=== PATIENT | female | born 1970 | race Two or more races ===

== ENCOUNTER 2025-02-20 14:30 | Emergency (ER) | payer SELFPAY ==
[2025-02-20 14:59] VITALS: BP 110/72; PULSE 65; RESP 18; TEMP 37.3; O2SAT 97
--- NOTE | 2025-02-20 15:07 | XR_ITS ---
Examination: CT brain head without contrast. 2-D sagittal coronal reconstructions Date and time of exam:February 20, 2025, 1526 hrs. Indications: Patient fell today, injury to the head, head pain. CTDI: vol (mGy):44.5. DLP: (mGycm):853. Technique: Multiple CT axial sections of the brain have been obtained, 5 mm slice thickness. Contrast has not been administered. 2-D sagittal, coronal reconstructions have been obtained Low dose protocols were performed. One or more of the following dose reduction techniques were used; automated exposure control, adjustment of the mA and/or KV according to patient size, use of iterative reconstruction technique. Findings: No significant ventricular enlargement. Intra-axial or extra-axial hemorrhage density is not seen. No mass effect or midline shift Basal cisterns are not remarkable. Fourth ventricle is midline. Cranial vault intact. Impression: Negative for acute hemorrhage, mass effect or midline shift
--- NOTE | 2025-02-20 15:07 | XR_ITS ---
Examination: CT cervical spine without contrast 2-D sagittal reconstructions 2-D coronal reconstructions 3-D reconstructions. Exam date and time:February 20, 2025 at 1527 hrs. Indications: Patient fell today with injury to the neck, neck pain CTDI:vol (mGy) 7.83. DLP: (mGycm) 150. Technique: Multiple 2 mm axial sections of the cervical spine have been obtained. The coronal and sagittal reconstructions have been obtained. 3-D reconstructions have been obtained. Low dose protocols were performed. One or more of the following dose reduction techniques were used; automated exposure control, adjustment of the mA and/or KV according to patient size, use of iterative reconstruction technique. Findings: Axial sections demonstrate intact base of the skull. C1 exhibit satisfactory relationship to the odontoid. No acute cervical vertebral body fracture seen. Alignment posterior spinous processes satisfactory. Impression: No acute cervical fracture.
--- NOTE | 2025-02-20 15:08 | XR_ITS ---
Examination: Hand, left 3 views Technique: Hand AP, oblique, lateral 3 views Date and time of exam: February 20, 2025 1517 hrs. Indications: Patient fell today with injury to the hand and wrist, wrist pain hand pain Findings: Severe osteopenia Acute impacted angulated fracture distal radial metaphysis, articulating surface of the radius directed dorsally Carpal bones metacarpals and digits appear intact Impression: Acute comminuted impacted angulated fracture distal radial metaphysis
--- NOTE | 2025-02-20 15:08 | XR_ITS ---
Examination: Wrist, left 3 views Technique: Wrist AP, oblique, lateral 3 views Date and time of exam: February 20, 2025 1517 hrs. Indications: Patient fell today with injury to the wrist, wrist pain. Findings: Acute impacted comminuted intra-articular angulated fracture distal radial metaphysis The distal articulating surface of the radius is angled dorsally Carpal bones intact Impression: Acute comminuted impacted intra-articular angulated fracture distal radial metaphysis
--- NOTE | 2025-02-20 15:50 | PC.NURSE ---
pt here s/p trip/fall hitting head and left wrist. deformity left wrist noted. denies head pain
[2025-02-20 15:53] VITALS: PULSE 65
--- NOTE | 2025-02-20 15:54 | EDNOTE_ITS ---
<Statement entered by Lilly Enriqeu MD - 02/22/25 18:54> As co-signing physician, I was present and available for consult prn. I concur with the plan and care as documented by the midlevel provider. ED Head Injury RME/HPI General Chief complaint: Head Injury Stated complaint: HEAD / LEFT ARM WRIST INJURY POST FALL LOC Time Seen by Provider: 02/20/25 15:51 Arrival date/time: 02/20/25 14:30 RME / HPI RME / HPI Narrative: 54-year-old female patient with no significant past medical history, came in for evaluation regarding ground-level fall. Patient sustained a ground-level fall, for minutes prior to ER visit using the left wrist as fulcrum, resulting toe pain and deformity of the left wrist. Patient also sustained abrasion to the forehead. Denies any neck pain denies any LOC nausea or vomiting patient is ambulatory. Patient is able to bend and extend the fingers without any limitation Related Data Previous Rx's ?Medication ?Instructions ?Recorded ibuprofen 800 mg tablet 800 mg PO Q8H PRN pain #30 t abs 02/20/25 Allergies Allergy/AdvReac Type Severity Reaction Status Date / Time No Known Allergies Allergy Verified 02/20/25 14:36 Review of Systems Review of Systems Narrative Review of Systems: Review of system reviewed and within normal limits except mentioned in HPI ED Exam Narrative Physical exam: VITAL SIGNS: Reviewed. GENERAL APPEARANCE: Alert and interactive, follows commands, no acute distress, HEAD AND FACE: Abrasion to the forehead ENT: PERRL, pink conjunctivitis, eyelid no trauma, Mucous membrane moist. NECK: Supple, nontender, no nuchal rigidity. CHEST: No tenderness, no crepitus, no paradoxical movement, no retractions. LUNGS: Clear, well ventilated, symmetric, no rales, no wheezing, no ronchi, no stridor, good breath sounds bilaterally. HEART: Regular rate, regular rhythm, no murmur, no gallops. ABDOMEN: Soft, positive bowel sounds, nondistended, no guarding, nontender, no rebound, no masses, RECTAL: Deferred. GENITAL: Deferred. NEUROLOGICAL: Gross motor function intact sensory function intact, Appropriate for age. MUSCULOSKELETAL: low back nontender, full range of motion. EXTREMITIES: Deformity tenderness swelling left wrist range of motion of the fingers. Capillary refill less than 2 seconds SKIN: Color pink, dry, no rash, no lacerations, no abrasions, no contusions. LYMPHATICS: Deferred. Course Quality Measures none Orders Category Date Time Status TDap [Obtain Tdap Consent] X1 Care 02/20/25 15:[address] cervical spine wo con Stat Exams 02/20/25 15:[address] head/brain wo con Stat Exams 02/20/25 15:07 Completed XR hand comp LT min 3V Stat Exams 02/20/25 15:08 Completed XR wrist LT 2V Stat Exams 02/20/25 16:20 Taken XR wrist comp LT min 3V Stat Exams 02/20/25 15:08 Completed HYDROcodone*/APAP 5/325 [[place] 5/325] Med 02/20/25 15:07 Discontinued 1 tab PO X1 ONE Lidocaine 1% 20 ml [Xylocaine 1% 20 ML] Med 02/20/25 15:51 Discontinued 10 ml INFL X1 ONE TET,DIP/PERT AC (Adult)-Tdap [Boostrix Adult (Tdap) Med 02/20/25 15:07 Discontinued Vacc] 0.5 ml IMI .ONCE ONE Vital Signs Vital signs: Vital Signs Temperature 99.2 F 02/20/25 14:59 Pulse Rate 65 02/20/25 14:59 Respiratory Rate 18 02/20/25 14:59 Blood Pressure 110/72 02/20/25 14:59 Pulse Oximetry (%) 97 02/20/25 14:59 Oxygen Delivery Method Room Air 02/20/25 14:59 PROCEDURES: Orthopedic Fracture Reduction Fracture #1: Time Out Performed: Yes Side: left Fracture Reduction Location: radius Analgesia: hematoma block Technique: direct manipulation and traction/counter-traction Post Reduction X-rays Demonstrate: anatomical reduction Post-reduction neuro exam: intact and no change Post-reduction vascular exam: intact and no change Splint Applied: Yes Patient Tolerated Procedure: no complications Head Injury MDM Narrative MDM Narrative:: 54-year-old female patient with no significant past medical history, came in for evaluation regarding ground-level fall. Patient sustained a ground-level fall, for minutes prior to ER visit using the left wrist as fulcrum, resulting toe pain and deformity of the left wrist. Patient also sustained abrasion to the forehead. Denies any neck pain denies any LOC nausea or vomiting patient is ambulatory. Patient is able to bend and extend the fingers without any l imitation Patient received [place] and Tdap. CT scan of the head came back unremarkable. CT scan of the cervical spine came back unremarkable. X-ray of the wrist showed displaced fracture of the distal radius. Postreduction x-ray showed significant improvement of fracture dislocation. Distal neurovascular status intact postreduction. Patient was advised to follow-up closely with orthopedic surgeon in [place] patient is going back to [place] in 4 days. Patient data External records reviewed:: None Clinical information provided by:: patient Social determinants that could affect healthcare access:: none Patient has the following chronic illnesses:: None How is presenting disease/condition affected by chronic disease/condition?: no chronic disease Evaluation data The following diagnostics were reviewed and interpreted by me:: radiology exam(s) Lab and/or radiology exams considered but not ordered:: None Interpretation Summary: See results MDM Medications / Prescriptions Medications or Prescriptions considered but not ordered:: None Medication administrations:: Medication Administration History Discontinued Medications Hydrocodone Bitart/Acetaminophen (Hydrocodone/Apap 5/325 Tablet) 1 tab PO X1 ONE Stop: 02/20/25 15:08 Last Admin: 02/20/25 16:02 Dose: 1 tab Documented By: [facility] Diphtheria/Tetanus/Acell Pertussis (Diphth,Pertuss(Acell),Tet Vac 0.5 Ml Syr- Adult) 0.5 ml IMi .ONCE ONE Stop: 02/20/25 15:08 Last Admin: 02/20/25 15:58 Dose: 0.5 ml Documented By: [facility] Lidocaine HCl (Lidocaine Hcl 1% 20 Ml Vial) 10 ml INFL X1 ONE Stop: 02/20/25 15:52 Last Admin: 02/20/25 16:02 Dose: 10 ml Documented By: [facility] Comments: used by provider Lidocaine, Tdap, [place] Consultations Consultation(s) initiated? (list below): No Diagnosis Differential diagnosis head injury: other (Forehead abrasion, wrist fracture, status post fall) Most likely diagnosis given after review of the tests above:: Distal radius fracture, status post fall Admission Indicated Admission indicated?: not indicated Admission Request Was there a request for admission?: No Disposition Plan Disposition Plan: Discharge Discharge Attestation Discharge Attestation: The patient and all family members were given an opportunity to ask questions and understood the discharge instructions. Discharge instructions specifically effects, indications for sooner follow up or return to the emergency department, and the expected course of current diagnosis. Patient condition: Stable Discharge Plan Plan Patient Disposition: HOME (Self Care) Discharge Disposition comment: Stable Prescriptions/Referrals Prescriptions/Med Rec: New ibuprofen 800 mg tablet 800 mg PO Q8H PRN (Reason: pain) Qty: 30 0RF Referrals: No Primary/Family,Physician [Primary Care Provider] - In 1 week Problem List Clinical Impression: Distal radius fracture, left Patient/Caregiver Discharge Instructions Discharge Activity: activity as tolerated Education Materials: ED Forearm Fracture with Reduction Additional Instructions: Thank you for the opportunity for serving you today. You are stable for discharged . You are advised to: Follow-up with your PCP in [place] when you arrive there and as per referral to orthopedic surgeon Do not remove the splint for the next 4 weeks or until seen by orthopedic surgeon Do not get it wet Elevate left wrist as needed Return to ED for worsening of symptoms Increase oral fluids Take medication as prescribed Print Language: Tamazight Stand Alone Forms: Carol Award Info., Patient Portal Info Letter NGOZI/GRETCHEN Supervising Physician CORNELL Supervising Physician: MD Barbara
[2025-02-20] MEDS: DIPHTH,PERTUSS(ACELL),TET VAC 0.5 ML SYR- ADULT IMi (15:58)
[2025-02-20] MEDS: LIDOCAINE HCL 1% 20 ML VIAL 10 ML INFL (16:02)
[2025-02-20] MEDS: HYDROcodone/APAP 5/325 TABLET 1 TAB PO (16:02)
[2025-02-20 16:04] VITALS: BP 109/72; PULSE 56; RESP 18; O2SAT 98
--- NOTE | 2025-02-20 16:20 | XR_ITS ---
Examination: Left wrist 2 views TECHNIQUE: AP lateral left wrist 2 views Date and time: February 20, 2025 1656 hours INDICATIONS: Acute comminuted angulated impacted fracture distal radial metaphysis on wrist films February 20, 2025 1522 hours, post reduction films FINDINGS: Marked improvement in alignment comminuted fractures distal radius, satisfactory alignment IMPRESSION: Marked improvement in alignment, satisfactory alignment comminuted fractures distal radius
[2025-02-20 17:39] VITALS: BP 116/64; PULSE 75; RESP 20; O2SAT 98
== END 2025-02-20 17:41 | disposition home or self-care (01) ==
PROVIDERS: Emergency Provider Family Medicine
DX: S52.572A Other intraarticular fracture of lower end of left radius, initial encounter for closed fracture (principal); S00.81XA Abrasion of other part of head, initial encounter; S09.90XA Unspecified injury of head, initial encounter; S19.9XXA Unspecified injury of neck, initial encounter; W18.30XA Fall on same level, unspecified, initial encounter
CPT/HCPCS: 25605; 70450; 72125; 73100; 73110; 73130; 90471; 90715; 99283; J3490; A9270